=== PATIENT | female | born 1995 ===

== ENCOUNTER 2022-05-11 11:42 | Emergency (ER) | payer MEDICAID | END 2022-05-11 14:45 | disposition home or self-care (01) | LOC: CC.ED 11:42 | DX: O23.12 Infections of bladder in pregnancy, second trimester (principal); N30.01 Acute cystitis with hematuria; Z3A.16 16 weeks gestation of pregnancy; Z79.899 Other long term (current) drug therapy; Z79.82 Long term (current) use of aspirin; Z79.84 Long term (current) use of oral hypoglycemic drugs | CPT/HCPCS: 81001; 87086; 99283 ==

== ENCOUNTER 2022-08-15 12:22 | Emergency (ER) | payer OTHER, MEDICAID | END 2022-08-15 13:30 | disposition home or self-care (01) | LOC: CC.ED 12:22 | DX: O9A.213 Injury, poisoning and certain other consequences of external causes complicating pregnancy, third trimester (principal); Z3A.30 30 weeks gestation of pregnancy; Z79.82 Long term (current) use of aspirin; Z79.4 Long term (current) use of insulin; Z79.84 Long term (current) use of oral hypoglycemic drugs; Z79.899 Other long term (current) drug therapy; V47.5XXA Car driver injured in collision with fixed or stationary object in traffic accident, initial encounter; Y92.410 Unspecified street and highway as the place of occurrence of the external cause | CPT/HCPCS: 99283; 99284 ==